=== PATIENT | male | born 1955 | race Caucasian/White ===

== ENCOUNTER 2017-07-15 15:35 | Inpatient (IN) | payer OTHER ==
[~2017-07-15] VITALS: Ht 177.8 cm; Wt 79.2 kg
[2017-07-15 15:39] VITALS: Ht 177.8 cm; Wt 79.2 kg
[2017-07-15] MEDS ORDERED: ASPIRIN 325 MG TAB PO STA (16:01)
[2017-07-15 16:50] LABS: ABNORMAL IP MESSAGE 1; BASOPHILS % 0.4 % (0.0-2.0); EOSINOPHILS # 0.1 10^3/ul (0.0-0.5); EOSINOPHILS % 1.3 % (0.0-7.0); HEMATOCRIT 41.5 % (42.0-52.0); HEMOGLOBIN 14.9 g/dl (14.0-18.0); LYMPHOCYTES # 0.5 10^3/ul (0.8-2.9); LYMPHOCYTES % 9.9 % (15.0-51.0); MEAN CORPUSCULAR HEMOGLOBIN 31.9 pg (29.0-33.0); MEAN CORPUSCULAR HGB CONC 35.9 g/dl (32.0-37.0); MEAN CORPUSCULAR VOLUME 88.9 fl (82.0-101.0); MEAN PLATELET VOLUME 10.1 fl (7.4-10.4); MONOCYTE # 0.4 10^3/ul (0.3-0.9); NEUTROPHIL # 3.7 10^3/ul (1.6-7.5); NEUTROPHILS % 79.2 % (39.0-77.0); PLATELET COUNT 138 10^3/UL (140-415); POSITIVE DIFF @See below; RED BLOOD COUNT 4.67 10^6/ul (4.70-6.10); RED CELL DISTRIBUTION WIDTH 12.9 % (11.5-14.5); WHITE BLOOD COUNT 4.7 10^3/ul (4.8-10.8)
[2017-07-15 17:06] LABS: ALANINE AMINOTRANSFERASE 38 IU/L (13-69); ALBUMIN 4.4 g/dl (3.3-4.9); ALBUMIN/GLOBULIN RATIO 1.41; ALKALINE PHOSPHATASE 63 IU/L (42-121); ANION GAP 15 (8-16); ASPARTATE AMINO TRANSFERASE 23 IU/L (15-46); BILIRUBIN,INDIRECT 0.6 mg/dl (0-1.1); BILIRUBIN,TOTAL 0.6 mg/dl (0.2-1.3); BLOOD UREA NITROGEN 21 mg/dl (7-20); CALCIUM 9.8 mg/dl (8.4-10.2); CARBON DIOXIDE 28 mmol/L (21-31); CHLORIDE 107 mmol/L (97-110); CREATININE 1.22 mg/dl (0.61-1.24); GLUCOSE 99 mg/dl (70-220); POTASSIUM 3.9 mmol/L (3.5-5.1); SODIUM 146 mmol/L (135-144); TOTAL PROTEIN 7.5 g/dl (6.1-8.1)
--- NOTE | 2017-07-15 17:09 | RADRPT ---
PROCEDURE: XR Chest. CLINICAL INDICATION: Chest pain. TECHNIQUE: Single frontal view of the chest was obtained. COMPARISON: None FINDINGS: The cardiomediastinal silhouette is normal in size. No focal consolidation is seen. No pleural effusion is seen. No definite pneumothorax. No acute osseous abnormality. There are multilevel degenerative changes of the imaged spine. IMPRESSION: No radiographic evidence of an acute cardiopulmonary process. RPTAT: [facility] Alonso Baez Physician Date Time Electronically viewed and signed by Alonso Baez Physician on 07/15/2017 17:09 PH/
[2017-07-15 17:32] LABS: TROPONIN-I < 0.012 ng/ml (0.00-0.12)
[2017-07-15] MEDS ORDERED: LISI10TA2 PO (17:33)
--- NOTE | 2017-07-15 18:16 | ERD ---
ER Documentation Chief Complaint Chief Complaint Complains of chest pain and pressure since today HPI 62-year-old male presents to the emergency department with his family complaining of chest discomfort. Patient was in his usual state of health until the last 3 weeks at which time He has been changing his blood pressure medication around with his doctor. Over the last 24-48 hours, he has been having a nonspecific chest discomfort in the left side of his chest that became more severe and pressure-like this morning. It radiated down his left arm and was associated with a sense of shortness of breath and generalized weakness. Patient reports no fevers, chills , hemoptysis. He currently reports the pain is mild to moderate. ROS All systems reviewed and are negative except as per history of present illness. Medications Home Meds Reported Medications Lisinopril* (Lisinopril*) 10 Mg Tablet, 10 MG PO DAILY, #30 TAB 07/15/17 Allergies Allergies: Coded Allergies: No Known Allergy (Unverified , 07/15/17) PMhx/Soc History of Surgery: No Anesthesia Reaction: No Hx Neurological Disorder: No Hx Respiratory Disorders: No Hx Cardiac Disorders: Yes (HTN) Hx Psychiatric Problems: No Hx Miscellaneous Medical Probl: No Hx Alcohol Use: No Hx Substance Use: No Hx Tobacco Use: No Smoking Status: Former smoker FmHx Noncontributory for chief complaint Physical Exam Vitals Vital Signs Date Time Temp Pulse Resp B/P Pulse Ox O2 Delivery O2 Flow Rate FiO2 07/15/17 18:01 50 9 134/87 100 Room Air 07/15/17 15:51 54 14 151/91 100 Room Air 07/15/17 15:39 56 20 159/80 98 Physical Exam GENERAL: The patient is well developed and appropriate for usual state of health in no apparent distress HEENT: Pupils equal, round, and reactive to light. EOMI. There is no scleral icterus. NECK: C-spine is soft and supple, there is no meningismus. There is no cervical lymphadenopathy. LUNGS: Clear to auscultation bilaterally. There are no rales, wheezes or rhonchi. HEART: Regular rate and rhythm, no murmurs, clicks, rubs or gallops. ABDOMEN: Soft, non-tender, non-distended. There are bowel sounds in all four quadrants. No rebound or guarding. EXTREMITIES: There is no peripheral cyanosis or edema. No focal swelling or erythema. NEURO: The patient moves all four extremities with 5/5 strength. Cranial nerves II - XII are intact. Normal gait. Alert and oriented SKIN: There is no apparent rash or petechiae. HEME/LYMPHATIC: There is no evidence of excessive bruising or lymphedema. PSYCHIATRIC: The patient does not appear anxious or depressed. Result Diagram: 07/15/17 1545 07/15/17 1545 Results 24 hrs Laboratory Tests Test 07/15/17 15:45 White Blood Count 4.710^3/ul Red Blood Count 4.6710^6/ul Hemoglobin 14.9g/dl Hematocrit 41.5% Mean Corpuscular Volume 88.9fl Mean Corpuscular Hemoglobin 31.9pg Mean Corpuscular Hemoglobin Concent 35.9g/dl Red Cell Distribution Width 12.9% Platelet Count 56496^3/UL Mean Platelet Volume 10.1fl Neutrophils % 79.2% Lymphocytes % 9.9% Monocytes % 9.0% Eosinophils % 1.3% Basophils % 0.4% Nucleated Red Blood Cells % 0.0/100WBC Neutrophils # 3.710^3/ul Lymphocytes # 0.510^3/ul Monocytes # 0.410^3/ul Eosinophils # 0.110^3/ul Basophils # 0.010^3/ul Nucleated Red Blood Cells # 0.010^3/ul Sodium Level 146mmol/L Potassium Level 3.9mmol/L Chloride Level 107mmol/L Carbon Dioxide Level 28mmol/L Anion Gap 15 Blood Urea Nitrogen 21mg/dl Creatinine 1.22mg/dl Glucose Level 99mg/dl Calcium Level 9.8mg/dl Total Bilirubin 0.6mg/dl Direct Bilirubin 0.00mg/dl Indirect Bilirubin 0.6mg/dl Aspartate Amino Transf (AST/SGOT) 23IU/L Alanine Aminotransferase (ALT/SGPT) 38IU/L Alkaline Phosphatase 63IU/L Troponin I < 0.012ng/ml Total Protein 7.5g/dl Albumin 4.4g/dl Globulin 3.10g/dl Albumin/Globulin Ratio 1.41 Current Medications Medications (Trade) Dose Ordered Sig/Adryan Route PRN Reason Start Time Stop Time Status Last Admin Dose Admin Aspirin (Aspirin) 325 mg ONCE STAT PO 07/15/17 16:01 07/15/17 16:02 DC 11/18/17 16:45 Procedures/MDM Patient was taken to a room, seen and evaluated. Comfort measures were initiated. Diagnostic tests were ordered and reviewed. 3 LEAD RHYTHM STRIP: Normal sinus rhythm without ectopy EK lead EKG reviewed by myself: Normal Sinus Rhythm Normal [place] and intervals No ST elevation, depression, or T wave inversion Impression: Normal EKG Repeat EKG interpreted by myself: Rate/rhythm: Normal sinus rhythm no ectopy [place]/intervals: Normal Ischemia: No ST elevation, ST depression, T wave inversion Impression: Nonischemic EKG RADIOLOGY: reviewed with the radiologist CONSULTATION: hospitalist was notified for admission REEVALUATION: Patient has remained stable in the emergency department. MEDICAL DECISION MAKIN-year-old male presents to the emergency department with chest pain of uncertain etiology. His first EKGs and troponins are reassuring. However, he has hypertension and other cardiac risk factors and will be admitted for ruling out ischemic disease. At this time, he appears to be comfortable pending his bed admission. Departure Diagnosis: Primary Impression: Chest pain Condition: Stable CARMEN VALDOVINOS Jul 15, 2017 18:16
[2017-07-15 19:55] VITALS: TEMP 98.3
[2017-07-15] MEDS ORDERED: BISACODYL (EC) 5 MG TAB PO PRN (20:00)
[2017-07-15] MEDS ORDERED: morphine 2 MG INJ IV PRN (20:00)
[2017-07-15] MEDS ORDERED: ACETAMINOPHEN 325 MG TAB PO PRN (20:00)
[2017-07-15] MEDS ORDERED: NACL 0.9% 3 ML SYG IV SCH (20:00)
[2017-07-15] MEDS ORDERED: NITROGLYCERIN (SL) 0.4 MG TAB SL PRN (20:00)
[2017-07-15] MEDS ORDERED: DOCUSATE SODIUM 100 MG CAP PO PRN (20:00)
[2017-07-15 20:17] VITALS: BP 137/64; PULSE 88; RESP 18
[2017-07-15 20:31] VITALS: PULSE 51
[2017-07-15 22:57] LABS: CREATINE KINASE 61 IU/L (23-200)
[2017-07-15 23:09] LABS: CK-MB 0.93 ng/ml (0.0-2.4); TROPONIN-I < 0.012 ng/ml (0.00-0.12)
[2017-07-15 23:54] VITALS: BP 125/78; PULSE 54; RESP 20
[2017-07-16] VITALS (12 sets, daily range): BP systolic 124–138; BP diastolic 75–86; PULSE 49–78; RESP 16–20
--- NOTE | 2017-07-16 05:54 | HP ---
Date/Time of Note Date/Time of Note DATE: 07/16/17 TIME: 05:51 Assessment/Plan VTE Prophylaxis VTE Prophylaxis Intervention: SCD's Lines/Catheters [facility] [place] Assessment/Plan Chief Complaint/Hosp Course This is a 62-year-old male being admitted to the telemetry floor for #1 chest pain: Rule out ACS: At the current time will trend cardiac troponins 3 , the first set was negative. Will check a echocardiogram. Aspirin/nitro/ morphine. Will consult cardiology. Will check TSH, lipid panel, A1c #2 sinus bradycardia: Likely could be patient's baseline, however in the setting of chest pain we will continue to monitor on telemetry. Consult cardiology. #3 hypertension: Continue lisinopril, continue to monitor patient's blood pressure #4 DVT GI prophylaxis: SCDs, no GI prophylaxis indicated Further treatment strategy will be implemented as per the clinical course Problems: HPI/ROS Admit Date/Time Admit Date/Time Jul 15, 2017 at 18:42 Hx of Present Illness Chief complaint: Chest pressure This is a 62-year-old male presents to the emergency department with his family complaining of chest pressure. Over the last 24-48 hours, he has been having a nonspecific chest discomfort in the left side of his chest that became more severe and pressure-like this morning. It radiated down his left arm and was associated with a sense of shortness of breath and generalized weakness. Patient reports no fevers, chills, hemoptysis. He currently reports the pain is mild to moderate. No one has ever mentioned to him before whether he has a low heart rate are not. Upon my examination at the bedside patient states that his symptoms have resolved. allergies: NKDA Medications: Lisinopril 10 mg once daily ROS Const: As per HPI Eyes : No pain discharge or redness or change in visual acuity ENT: No pain, sore throat, congestion, congestion, dysphagia or discharge Respiratory: As per HPI Cardiovascular: As per HPI GI : no change in appetite, abdominal pain, nausea, vomiting, diarrhea, constipation, or change in the color his stool Genitourinary: No dysuria, hematuria, flank pain , discharge or CVA tenderness Musculoskeletal: No joint pain, back pain, neck pain, restricted range of motion in neck or joints Skin: No rash, bruising or hives Neuro: No headache, dizziness, syncope, seizure, focal weakness Endocrine: No polyuria, polydipsia, temperature intolerance Psych: No hallucination, depression, anxiety or suicidal ideation PMH/Family/Social Past Medical History Hypertension Past Surgical History Left toe surgery Family History Significant Family History: diabetes, hypertension Social History Smoking Status: Former smoker (1 pack per day 35 years, quit recently) Exam/Review of Systems Vital Signs Vitals Vital Signs Date Time Temp Pulse Resp B/P Pulse Ox O2 Delivery O2 Flow Rate FiO2 07/16/17 04:10 49 07/15/17 23:54 97.9 20 125/78 96 Room Air Exam Exam General: Patient is well-developed well-nourished The patient is alert oriented -3 lying comfortably in bed. HEENT: Atraumatic, normocephalic. The pupils are equal, round and reactive. Extraocular motor are intact Neck: Supple with full range of motion. No rigidity or meningismus Chest: Nontender Lungs: Clear to auscultation bilaterally no crackles rales or wheezing Heart: Normal S1-S2, Regular rhythm and rate. No overt murmurs appreciated Abdomen: Soft , nontender, nondistended , bowel sounds are present. No guarding no rebound tenderness , No masses or organomegaly. No costovertebral temporal angle mass Extremities: Normal to inspection, no edema no cyanosis Neurologic: Normal mental status, speech normal, cranial nerves II through XII are intact, motor and sensory are intact, no focal weakness Additional Comments EKG Rate/rhythm: Normal sinus rhythm no ectopy [place]/intervals: Normal Ischemia: No ST elevation, ST depression, T wave inversion Impression: Nonischemic EKG As per ED physician documentation PROCEDURE: XR Chest. CLINICAL INDICATION: Chest pain. TECHNIQUE: Single frontal view of the chest was obtained. COMPARISON: None FINDINGS: The cardiomediastinal silhouette is normal in size. No focal consolidation is seen. No pleural effusion is seen. No definite pneumothorax. No acute osseous abnormality. There are multilevel degenerative changes of the imaged spine. IMPRESSION: No radiographic evidence of an acute cardiopulmonary process. RPTAT: [facility] Physician Nir Date Time Electronically viewed and signed by Philipy Ho, Physician on 07/15/2017 17:09 PH/ CC: CARMEN VALDOVINOS Telemetry reading: Sinus bradycardia 48 bpm Labs Result Diagram: 07/15/17 1545 07/15/17 1545 Medications Medications Current Medications Aspirin (Aspirin) 81 mg DAILY PO ; Start 07/16/17 at 09:00 Nitroglycerin (Nitroglycerin (Sl Tab) 0.4 Mg) 1 tab Q5M PRN SL CHEST PAIN; Start 07/15/17 at 20:00 Acetaminophen (Tylenol Tab) 650 mg Q6H PRN PO PAIN LEVEL 1-3 OR FEVER; Start 07/15/17 at 20:00 Morphine Sulfate (morphine) 2 mg Q4H PRN IV PAIN LEVEL 7-10; Start 07/15/17 at 20:00 Docusate Sodium (Colace) 100 mg Q12H PRN PO CONSTIPATION; Start 07/15/17 at 20 :00 Bisacodyl (Dulcolax) 5 mg DAILY PRN PO CONSTIPATION; Start 07/15/17 at 20:00 Lisinopril (Zestril) 10 mg DAILY PO ; Start 07/16/17 at 09:00 DARIN HEALY Jul 16, 2017 05:54
[2017-07-16 08:13] LABS: ABNORMAL IP MESSAGE 1; BASOPHILS % 0.5 % (0.0-2.0); EOSINOPHILS % 0.8 % (0.0-7.0); HEMATOCRIT 41.9 % (42.0-52.0); HEMOGLOBIN 14.8 g/dl (14.0-18.0); LYMPHOCYTES # 0.5 10^3/ul (0.8-2.9); LYMPHOCYTES % 12.4 % (15.0-51.0); MEAN CORPUSCULAR HEMOGLOBIN 31.8 pg (29.0-33.0); MEAN CORPUSCULAR HGB CONC 35.3 g/dl (32.0-37.0); MEAN CORPUSCULAR VOLUME 90.1 fl (82.0-101.0); MEAN PLATELET VOLUME 10.3 fl (7.4-10.4); MONOCYTE # 0.3 10^3/ul (0.3-0.9); MONOCYTES % 7.6 % (0.0-11.0); NEUTROPHIL # 2.9 10^3/ul (1.6-7.5); NEUTROPHILS % 78.4 % (39.0-77.0); PLATELET COUNT 113 10^3/UL (140-415); POSITIVE DIFF @See below; RED BLOOD COUNT 4.65 10^6/ul (4.70-6.10); RED CELL DISTRIBUTION WIDTH 13.2 % (11.5-14.5); WHITE BLOOD COUNT 3.7 10^3/ul (4.8-10.8)
[2017-07-16] MEDS: ASPIRIN 81 MG TAB PO SCH (08:27)
[2017-07-16] MEDS: LISINOPRIL 10 MG TAB PO SCH (08:28)
[2017-07-16 08:37] LABS: CREATINE KINASE 49 IU/L (23-200)
[2017-07-16 08:38] LABS: ALBUMIN 4.3 g/dl (3.3-4.9); ALBUMIN/GLOBULIN RATIO 1.59; BILIRUBIN,INDIRECT 1.2 mg/dl (0-1.1); BILIRUBIN,TOTAL 1.2 mg/dl (0.2-1.3); CHOL/HDL RATIO 4.9 RATIO; CREATININE 1.03 mg/dl (0.61-1.24); MAGNESIUM 1.9 mg/dl (1.7-2.5); POTASSIUM 4.8 mmol/L (3.5-5.1)
[2017-07-16 08:49] LABS: TROPONIN-I < 0.012 ng/ml (0.00-0.12)
[2017-07-16 09:06] LABS: THYROID STIMULATING HORMONE 1.33 MIU/L (0.465-4.680)
--- NOTE | 2017-07-16 10:55 | RADRPT ---
Echocardiogram Report Patient Name: CHIKIS MILLER Gender: Male Date: 1955 Study Date: 16-Jul-2017 Power Tong Operator: WOLF Location: I Ref. Physician: DARIN HEALY Quality: Good Procedures: Transthoracic echocardiogram with complete 2D, M-Mode, and doppler examination. Indications: Chest Pain. 2D/M Mode Doppler Measurement Value Normal Ranges Measurement Value Normal Ranges AoR Diam MM 4.1 cm NICCI Vmax 1.9 cm2 LA/Ao MM 0.7 NICCI VTI 1.9 cm2 LA Dimen MM 2.8 cm AV Mean Jose Guadalupe 1.2 m/sec LVIDd 2D 5.1 3.5 - 5.6 cm AV Mean PG 6.2 mmHg LVIDs 2D 3.5 2.1 - 4.1 cm AV Peak Jose Guadalupe 1.6 m/sec LVPWd 2D 1.0 0.6 - 1.1 cm AV Peak PG 9.7 mmHg IVSd 2D 1.0 0.6 - 1.1 cm AV VTI 33.2 cm AoR Diam 2D 4.1 2.0 - 3.7 cm LVOT Peak Jose Guadalupe 0.9 m/sec EDV 2D 122.2 cm3 LVOT Peak PG 3.0 mmHg ESV 2D 41.3 cm3 MV E Peak Jose Guadalupe 0.8 m/sec LVOT Diam 2.1 cm MV A Peak Jose Guadalupe 0.6 m/sec MV E/A 1.3 MV Decel Time 265 msec MV Decel [place] 3 MV E/A 1.3 TR Peak Jose Guadalupe 2.3 m/sec TR Peak PG 21.5 mmHg Findings Left Ventricle: Normal left ventricular systolic function. Normal left ventricular cavity size. Normal left ventricular wall thickness. Ejection fraction is visually estimated at 60 %. Tissue Doppler/Mitral Doppler indices are within normal limits. Right Ventricle: Normal right ventricular size. Normal right ventricular systolic function. Left Atrium: The left atrium is normal in size. Right Atrium: The right atrium is normal in size. Mitral Valve: Normal appearance and function of the mitral valve with trace physiologic regurgitation. Aortic Valve: Normal appearance of the aortic valve. No hemodynamically significant aortic stenosis by doppler. Trace aortic valve regurgitation. Tricuspid Valve: Estimated peak PA systolic pressure 25 mmHg. There is trace tricuspid regurgitation. Pericardium: Normal pericardium with no significant pericardial effusion. Aorta: Sinus of valsalva is dilated. Sinus of valsalva4.10 cm. Ascending aorta is dilated. Aortic arch 4.60 cm. IVC: Normal size and normal respiratory collapse consistent with normal right atrial pressure. Conclusions 1.Normal left ventricular systolic function. Normal left ventricular cavity size. Normal left ventricular wall thickness. Ejection fraction is visually estimated at 60 %. Tissue Doppler/Mitral Doppler indices are within normal limits. 2.Sinus of valsalva is dilated at 4.10 cm. Ascending aorta is dilated at 4.60 cm. 3.No significant valvular stenosis or regurgitation seen. 4.Estimated peak PA systolic pressure 25 mmHg based on RA pressure of 3 mmHg. Electronically Signed By: Thiago Wooten 16-Jul-2017 10:53:57 -0800 Patient Name: CHIKIS MILLER Study Date: 16-Jul-2017 [id number]
--- NOTE | 2017-07-16 11:04 | CONS ---
Date/Time of Note Date/Time of Note DATE: 07/16/17 TIME: 10:54 Assessment/Plan Assessment/Plan Chief Complaint/Hosp Course Chest pain: Trops negative and EKG unremarkable. Echo with preserved EF and no WMA. His symptoms are somewhat worrisome as they may represent unstable angina which has progressed over the past week. I think an anatomic evaluation is appropriate and since the history isnt classic for angina and the pt has risk factors, favor cardiac CT over Lexiscan. He also has an aortic aneurysm by echo (4.6cm) and though very low suspicion for dissection, the CT would also better assess the aneurysm. Ascending aortic aneurysm: 4.6cm by echo. Unclear chronicity. Will evaluate by CT and needs serial follow-up HTN: controlled -Coronary CTA hopefully can be done today -continue ASA -lisinopril -no BB as baseline bradycardia -will ask Dr. 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 The pt notes that over the past few days, he has been having episodes of chest pressure unrelated to activity. He had very brief episodes earlier this week which resolved but yesterday he had an epsiode lasting 3 hours which concerned him. No further chest pain since coming to the ED. He had chest "twinges" recently and was seen by Dr. Del Cid 3 weeks ago. He did not have the chest pressure that brought him in this time. His main reason for visiting a cleat maker was that he had some changes made to his medications. He was on lisinopril 30mg but he lost 60lbs and quit smoking and so his dose had been coming down and his PMD wanted cardiology input. No prior heart disease or MD. No SOB, orthopnea, PND, edema. per HPI Past Medical History per hPI Social History Smoking Status: Former smoker (1 pack per day 35 years, quit recently) Exam/Review of Systems Vital Signs Vitals Vital Signs Date Time Temp Pulse Resp B/P Pulse Ox O2 Delivery O2 Flow Rate FiO2 07/16/17 08:00 54 07/16/17 05:00 97.9 20 133/78 97 Room Air Intake and Output 07/15/17 07/15/17 07/16/17 15:00 23:00 07:00 Intake Total 80 ml Balance 80 ml Exam Constitutional: alert, oriented Psych: nl mood/affect, no complaints Head: atraumatic, normocephalic Neck: supple, No jvd Respiratory: clear to auscultation, No crackles/rales Cardiovascular: regular rate and rhythm, No edema, No systolic murmur Gastrointestinal: non-tender, soft Extremities: normal pulses Neurological: nl mental status, nl speech Results sinus bradycardia, no ST changes Result Diagram: 07/16/1771707/16/17717 Results 24 hrs Laboratory Tests Test 07/15/17 15:45 07/15/17 22:08 07/16/17 07:18 White Blood Count 4.7 L 3.7 #L Red Blood Count 4.67 L 4.65 L Hemoglobin 14.9 14.8 Hematocrit 41.5 L 41.9 L Mean Corpuscular Volume 88.9 90.1 Mean Corpuscular Hemoglobin 31.9 31.8 Mean Corpuscular Hemoglobin Concent 35.9 35.3 Red Cell Distribution Width 12.9 13.2 Platelet Count 138 L 113 L Mean Platelet Volume 10.1 10.3 Neutrophils % 79.2 H 78.4 H Lymphocytes % 9.9 L 12.4 L Monocytes % 9.0 7.6 Eosinophils % 1.3 0.8 Basophils % 0.4 0.5 Nucleated Red Blood Cells % 0.0 0.0 Neutrophils # 3.7 2.9 Lymphocytes # 0.5 L 0.5 L Monocytes # 0.4 0.3 Eosinophils # 0.1 0.0 Basophils # 0.0 0.0 Nucleated Red Blood Cells # 0.0 0.0 Sodium Level 146 H 146 H Potassium Level 3.9 4.8 Chloride Level 107 107 Carbon Dioxide Level 28 31 Anion Gap 15 13 Blood Urea Nitrogen 21 H 22 H Creatinine 1.22 1.03 Glucose Level 99 86 Calcium Level 9.8 10.0 Total Bilirubin 0.6 1.2 Direct Bilirubin 0.00 0.00 Indirect Bilirubin 0.6 1.2 H Aspartate Amino Transf (AST/SGOT) 23 21 Alanine Aminotransferase (ALT/SGPT) 38 42 Alkaline Phosphatase 63 55 Troponin I < 0.012 < 0.012 < 0.012 Total Protein 7.5 7.0 Albumin 4.4 4.3 Globulin 3.10 2.70 Albumin/Globulin Ratio 1.41 1.59 Creatine Kinase 61 49 Creatine Kinase Index 1.5 1.4 Creatinine Kinase MB (Mass) 0.93 0.70 Hemoglobin A1c 4.7 Magnesium Level 1.9 Triglycerides Level 64 Cholesterol Level 148 LDL Cholesterol, Calculated 105 HDL Cholesterol 30 Cholesterol/HDL Ratio 4.9 Thyroid Stimulating Hormone (TSH) 1.330 Medications Medications Current Medications Aspirin (Aspirin) 81 mg DAILY PO Last administered on 07/16/17 08:27; Admin Dose 81 MG; Start 07/16/17 at 09:00 Nitroglycerin (Nitroglycerin (Sl Tab) 0.4 Mg) 1 tab Q5M PRN SL CHEST PAIN; Start 07/15/17 at 20:00 Acetaminophen (Tylenol Tab) 650 mg Q6H PRN PO PAIN LEVEL 1-3 OR FEVER; Start 07/15/17 at 20:00 Morphine Sulfate (morphine) 2 mg Q4H PRN IV PAIN LEVEL 7-10; Start 07/15/17 at 20:00 Docusate Sodium (Colace) 100 mg Q12H PRN PO CONSTIPATION; Start 07/15/17 at 20 :00 Bisacodyl (Dulcolax) 5 mg DAILY PRN PO CONSTIPATION; Start 07/15/17 at 20:00 Lisinopril (Zestril) 10 mg DAILY PO Last administered on 07/16/17 08:28; Admin Dose 10 MG; Start 07/16/17 at 09:00 RIYA TSAI Jul 16, 2017 11:04
[2017-07-17] VITALS (11 sets, daily range): BP systolic 104–135; BP diastolic 64–85; PULSE 54–76; RESP 16–20
[2017-07-17 08:33] LABS: ABNORMAL IP MESSAGE 1; BASOPHILS % 0.5 % (0.0-2.0); EOSINOPHILS % 0.7 % (0.0-7.0); HEMATOCRIT 42.4 % (42.0-52.0); HEMOGLOBIN 15.1 g/dl (14.0-18.0); LYMPHOCYTES # 0.4 10^3/ul (0.8-2.9); LYMPHOCYTES % 9.9 % (15.0-51.0); MEAN CORPUSCULAR HEMOGLOBIN 31.9 pg (29.0-33.0); MEAN CORPUSCULAR HGB CONC 35.6 g/dl (32.0-37.0); MEAN CORPUSCULAR VOLUME 89.5 fl (82.0-101.0); MEAN PLATELET VOLUME 10.4 fl (7.4-10.4); MONOCYTE # 0.4 10^3/ul (0.3-0.9); MONOCYTES % 8.6 % (0.0-11.0); NEUTROPHIL # 3.2 10^3/ul (1.6-7.5); NEUTROPHILS % 80.1 % (39.0-77.0); PLATELET COUNT 131 10^3/UL (140-415); POSITIVE DIFF @See below; RED BLOOD COUNT 4.74 10^6/ul (4.70-6.10); RED CELL DISTRIBUTION WIDTH 13.2 % (11.5-14.5); WHITE BLOOD COUNT 4.1 10^3/ul (4.8-10.8)
[2017-07-17] MEDS: ASPIRIN 81 MG TAB PO SCH (08:45)
[2017-07-17] MEDS: LISINOPRIL 10 MG TAB PO SCH (08:46)
[2017-07-17 09:11] LABS: MAGNESIUM 2.1 mg/dl (1.7-2.5); PHOSPHORUS 3.2 mg/dl (2.5-4.9)
[2017-07-17 09:14] LABS: CREATININE 0.95 mg/dl (0.61-1.24); POTASSIUM 4.5 mmol/L (3.5-5.1)
[2017-07-17 09:23] LABS: TROPONIN-I < 0.012 ng/ml (0.00-0.12)
[2017-07-17] MEDS ORDERED: SOD CHLORIDE 0.9% 100 ML ONE (10:39)
[2017-07-17] MEDS ORDERED: IOHEXOL 100 ML ONE (10:39)
[2017-07-17] MEDS ORDERED: IOHEXOL 350MG/ML 50 ML BTL ONE (10:39)
[2017-07-17] MEDS ORDERED: NIT4 SL (10:40)
[2017-07-17] MEDS ORDERED: ASPI81TA3 PO (10:40)
[2017-07-17] MEDS ORDERED: LISI10TA2 PO (10:40)
[2017-07-17] MEDS ORDERED: NITROGLYCERIN AEROSOL (4.9 GM) ONE (11:06)
--- NOTE | 2017-07-17 13:50 | CONS ---
Date/Time of Note Date/Time of Note DATE: 07/17/17 TIME: 13:45 Assessment/Plan Assessment/Plan Chief Complaint/Hosp Course IMP: 1.Chest pain-negative trop x 3, atypical symptomatology-resolved, NL EF by echo 2.HTN 3.Dilated ascending aortic route on Echo 4. Former tob 5.Bradycardia 6. Dyslipidemia-LDL 105, HDL 30 7. Bradycardia to 50's with stable BP-NL TSH Recc; -Tele -serial ecg;'s -Continue zestril with well controlled BP -Hold on BB given intermittent jan to 50's -Continue asa Problems: Consultation Date/Type/Reason Admit Date/Time Jul 15, 2017 at 18:42 Initial Consult Date 07/16/17 Type of Consultation: Cardiology Reason for Consultation chest pain Referring Provider: DARIN HEALY Exam/Review of Systems Vital Signs Vitals Vital Signs Date Time Temp Pulse Resp B/P Pulse Ox O2 Delivery O2 Flow Rate FiO2 07/17/17 12:00 76 07/17/17 11:58 97.9 18 117/72 96 07/16/17 15:50 Room Air Intake and Output 07/16/17 07/16/17 07/17/17 15:00 23:00 07:00 Intake Total 1200 ml 360 ml Balance 1200 ml 360 ml Exam Review of Systems: CONSTITUTIONAL: No fevers, chills. PULMONARY: No sob CARDIOVASCULAR: No chest pain/palpitations GASTROINTESTINAL: No nausea/vomiting. GENITOURINARY: No hematuria/dysuria. MUSCULOSKELETAL: No myagias/arthalgias. PSYCHIATRIC: The patient denies depression. NEUROLOGIC: No weakness Constitutional: alert, oriented Psych: no complaints Head: normocephalic ENMT: mucosa pink and moist Neck: jvd (9 cm WATER), supple Respiratory: clear to auscultation Cardiovascular: regular rate and rhythm Gastrointestinal: non-tender, soft Musculoskeletal: muscle tone (NORMAL) Extremities: edema (NONE) Neurological: other (nO FOCAL DEFICITS) Results Result Diagram: 07/17/17 0733 07/17/17 0733 Results 24 hrs Laboratory Tests Test 07/17/17 07:33 White Blood Count 4.1 L Red Blood Count 4.74 Hemoglobin 15.1 Hematocrit 42.4 Mean Corpuscular Volume 89.5 Mean Corpuscular Hemoglobin 31.9 Mean Corpuscular Hemoglobin Concent 35.6 Red Cell Distribution Width 13.2 Platelet Count 131 L Mean Platelet Volume 10.4 Neutrophils % 80.1 H Lymphocytes % 9.9 L Monocytes % 8.6 Eosinophils % 0.7 Basophils % 0.5 Nucleated Red Blood Cells % 0.0 Neutrophils # 3.2 Lymphocytes # 0.4 L Monocytes # 0.4 Eosinophils # 0.0 Basophils # 0.0 Nucleated Red Blood Cells # 0.0 Sodium Level 149 H Potassium Level 4.5 Chloride Level 109 Carbon Dioxide Level 30 Anion Gap 15 Blood Urea Nitrogen 22 H Creatinine 0.95 Glucose Level 95 Calcium Level 10.0 Phosphorus Level 3.2 Magnesium Level 2.1 Troponin I < 0.012 Medications Medications Current Medications Aspirin (Aspirin) 81 mg DAILY PO Last administered on 07/17/17 08:45; Admin Dose 81 MG; Start 07/16/17 at 09:00 Nitroglycerin (Nitroglycerin (Sl Tab) 0.4 Mg) 1 tab Q5M PRN SL CHEST PAIN; Start 07/15/17 at 20:00 Acetaminophen (Tylenol Tab) 650 mg Q6H PRN PO PAIN LEVEL 1-3 OR FEVER; Start 07/15/17 at 20:00 Morphine Sulfate (morphine) 2 mg Q4H PRN IV PAIN LEVEL 7-10; Start 07/15/17 at 20:00 Docusate Sodium (Colace) 100 mg Q12H PRN PO CONSTIPATION; Start 07/15/17 at 20 :00 Bisacodyl (Dulcolax) 5 mg DAILY PRN PO CONSTIPATION; Start 07/15/17 at 20:00 Lisinopril (Zestril) 10 mg DAILY PO Last administered on 07/17/17 08:46; Admin Dose 10 MG; Start 07/16/17 at 09:00 FCO ALVARADO Jul 17, 2017 13:50
--- NOTE | 2017-07-17 17:05 | RADRPT ---
PROCEDURE: CTA of the heart and coronary arteries. CLINICAL INDICATION: Chest pain COMPARISON: Chest radiograph 07/15/2017 TECHNIQUE: CTA of the coronary arteries with multiphasic ECG-gated volumetric acquisition from the a scending aorta to the diaphragm performed with intravenous contrast on a high-resolution multi detec tor scanner with multiphasic reconstructions. Multiplanar reconstructions, three-dimensional reconst ructions, as well as maximal intensity projection images are produced and reviewed. One or more of t he following dose reduction techniques were used: Automated exposure control; Adjustment of the mA a nd/or kV according to patient size; Use of iterative reconstruction technique; ECG dose modulation. CTDI = 8, 36, 83 mGy. DLP = 1701 mGy-cm. DICOM images are available. Stenosis classification of vessels greater than 1.5 mm in diameter: None 0%, Minimal 1-24%, Mild 25- 49%, Moderate 50-69%, Severe 70-99%, Occluded 100% CONTRAST: 110 mL of Omnipaque 350 intravenously without adverse event. FINDINGS: Overall exam quality and angiographic enhancement: Excellent. Origins and course of the coronary arteries: Normal. Coronary artery system dominance pattern: Right. Total calcium score: 1258 Not fully diagnostic segments due to artifacts: None. RCA: Multifocal calcified and noncalcified plaques in the proximal and mid segments of the vessel pr oduce 30 - 50% stenosis. Small calcified and noncalcified plaques in the distal segment of the vesse l produce 0 - 25% stenosis. PLB: Minimal irregularities. PDA: 30 - 40% stenosis of the proximal segment of the vessel. LM: Patent with no evidence of plaque. RI: Patent with no evidence of plaque. LAD: Multiple predominately calcified plaques producing 50 - 60% stenosis are present at the origin of the of the vessel and up to the level of the first diagonal branch. Diffuse irregularities of the midsegment of the vessel appear to produce less than 25% stenosis although there are no clearly nor mal reference segments available for comparison. Distal segment of the vessel is widely patent. Diags: D1: Minimal irregularities. LCX: 40 - 50% stenosis of the origin and proximal segment of the vessel due to predominantly noncalc ified plaque. Smaller predominately calcified plaques within the mid - distal segment of the vessel produce less than 25% stenosis. OMs: The small caliber vessels appear widely patent. Pericardium: Normal. Pericardial effusion: None. Heart size: Normal. Aortic valve: Trileaflet morphology. Systolic excursion is not well visualized on the phases obtaine d. Normal diastolic coaptation. No evidence of thickening or calcification. Mitral valve: Normal morphology. No evidence of prolapse on systolic images. No evidence of thickeni ng or calcification. Myocardial attenuation: Normal. No abnormal areas of thickening or thinning. Intracardiac enhancement: No left-sided filling defects to suggest the presence of mass or thrombus . Left atrial appendage is well opacified. Extracardiac findings: Visualized thoracic aorta: Aneurysmal dilatation of the mid ascending thoracic aorta measuring 4.6 c m. Dilatation of the aortic root with maximal root dimension of 4.8 cm; asymmetric dilatation of the noncoronary cusp. Pulmonary arteries: Normal caliber. No evidence of central filling defect. Pulmonary veins: Conventional pulmonary venous return. Lungs: No acute appearing air space infiltrates. No suspicious pulmonary nodules. Visualized mediastinum: No mass or fluid collection. No lymphadenopathy. Visualized osseous structures: Moderate degenerative changes of the thoracic spine. Visualized upper abdomen: Normal. Other findings: None. IMPRESSION: Total calcium score: 1258 Not fully diagnostic segments due to artifacts: None. RCA: Multifocal calcified and noncalcified plaques in the proximal and mid segments of the vessel pr oduce 30 - 50% stenosis. Small calcified and noncalcified plaques in the distal segment of the vesse l produce 0 - 25% stenosis. PLB: Minimal irregularities. PDA: 30 - 40% stenosis of the proximal segment of the vessel. LM: Patent with no evidence of plaque. RI: Patent with no evidence of plaque. LAD: Multiple predominately calcified plaques producing 50 - 60% stenosis are present at the origin of the of the vessel and up to the level of the first diagonal branch. Diffuse irregularities of the midsegment of the vessel appear to produce less than 25% stenosis although there are no clearly nor mal reference segments available for comparison. Distal segment of the vessel is widely patent. Diags: D1: Minimal irregularities. LCX: 40 - 50% stenosis of the origin and proximal segment of the vessel due to predominantly noncalc ified plaque. Smaller predominately calcified plaques within the mid - distal segment of the vessel produce less than 25% stenosis. OMs: The small caliber vessels appear widely patent. Dilatation of the aortic root with maximal root dimension of 4.8 cm; asymmetric dilatation of the no ncoronary cusp. Aneurysmal dilatation of the mid ascending thoracic aorta measuring 4.6 cm. RPTAT: AADD .Onofre Stoddard MD, Date Time Electronically viewed and signed by .Onofre Stoddard MD, on 07/17/2017 17:05 .B/
--- NOTE | 2017-07-17 17:20 | PN ---
Date/Time of Note Date/Time of Note DATE: 07/17/17 TIME: 17:20 Assessment/Plan VTE Prophylaxis VTE Prophylaxis Intervention: SCD's Lines/Catheters IV [facility]from [facility] Saline Lock Assessment/Plan Chief Complaint/Hosp Course Assessment and plan 1. Chest pain. Rule out ACS. Serial troponins were negative 3. CTA of the chest was done that showed total calcium score of 1258. There was seen some noncalcified plaques in the proximal and mid segments of the vessels to produce 30-50% stenosis in the RCA. The LAD there was seen multiple calcified plaques producing 50-60% stenosis. LCx showed 40-50% stenosis of the origin and proximal segment of the vessel due to predominantly noncalcified plaque. Will follow up with adult basic education teacher for recommendations. 2. Sinus bradycardia. Likely patient's baseline. Patient asymptomatic at present. Monitor on telemetry. 3. Hypertension. Continue antihypertensives and adjust needed. Disposition plan: We will follow-up with adult basic education teacher concerning her iliac CT. Discharge when medically stable and cleared by reporting consultant Discussed plan of care with Dr. Laguerre Problems: Subjective 24 Hr Interval Summary Free Text/Dictation Denies any chest pain. Appears comfortable at present. Exam/Review of Systems Vital Signs Vitals Vital Signs Date Time Temp Pulse Resp B/P Pulse Ox O2 Delivery O2 Flow Rate FiO2 07/17/17 16:00 72 07/17/17 15:45 98.0 18 105/68 95 07/16/17 15:50 Room Air Intake and Output 07/16/17 07/16/17 07/17/17 15:00 23:00 07:00 Intake Total 1200 ml 360 ml Balance 1200 ml 360 ml Exam Constitutional: alert, oriented Psych: nl mood/affect Head: normocephalic Eyes: nl conjunctiva Neck: non-tender, supple Respiratory: clear to auscultation, normal air movement Cardiovascular: regular rate and rhythm Gastrointestinal: non-tender, soft Musculoskeletal: nl extremities to inspection Neurological: CR[employer]GER II-XII intact, nl mental status, nl speech Skin: nl turgor Results Result Diagram: 07/17/17 0733 07/17/17 0733 Results 24 hrs Laboratory Tests Test 07/17/17 07:33 White Blood Count 4.1 L Red Blood Count 4.74 Hemoglobin 15.1 Hematocrit 42.4 Mean Corpuscular Volume 89.5 Mean Corpuscular Hemoglobin 31.9 Mean Corpuscular Hemoglobin Concent 35.6 Red Cell Distribution Width 13.2 Platelet Count 131 L Mean Platelet Volume 10.4 Neutrophils % 80.1 H Lymphocytes % 9.9 L Monocytes % 8.6 Eosinophils % 0.7 Basophils % 0.5 Nucleated Red Blood Cells % 0.0 Neutrophils # 3.2 Lymphocytes # 0.4 L Monocytes # 0.4 Eosinophils # 0.0 Basophils # 0.0 Nucleated Red Blood Cells # 0.0 Sodium Level 149 H Potassium Level 4.5 Chloride Level 109 Carbon Dioxide Level 30 Anion Gap 15 Blood Urea Nitrogen 22 H Creatinine 0.95 Glucose Level 95 Calcium Level 10.0 Phosphorus Level 3.2 Magnesium Level 2.1 Troponin I < 0.012 Medications Medications Current Medications Aspirin (Aspirin) 81 mg DAILY PO Last administered on 07/17/17 08:45; Admin Dose 81 MG; Start 07/16/17 at 09:00 Nitroglycerin (Nitroglycerin (Sl Tab) 0.4 Mg) 1 tab Q5M PRN SL CHEST PAIN; Start 07/15/17 at 20:00 Acetaminophen (Tylenol Tab) 650 mg Q6H PRN PO PAIN LEVEL 1-3 OR FEVER; Start 07/15/17 at 20:00 Morphine Sulfate (morphine) 2 mg Q4H PRN IV PAIN LEVEL 7-10; Start 07/15/17 at 20:00 Docusate Sodium (Colace) 100 mg Q12H PRN PO CONSTIPATION; Start 07/15/17 at 20 :00 Bisacodyl (Dulcolax) 5 mg DAILY PRN PO CONSTIPATION; Start 07/15/17 at 20:00 Lisinopril (Zestril) 10 mg DAILY PO Last administered on 07/17/17 08:46; Admin Dose 10 MG; Start 07/16/17 at 09:00 NESS BAR Jul 17, 2017 17:20
[2017-07-18] VITALS: PULSE 51
[2017-07-18 01:55] VITALS: BP 104/61; RESP 16
[2017-07-18 04:00] VITALS: BP 127/73; PULSE 50; RESP 16
[2017-07-18 08:12] VITALS: BP 132/80; PULSE 66; RESP 17
--- NOTE | 2017-07-18 08:54 | CONS ---
Date/Time of Note Date/Time of Note DATE: 07/18/17 TIME: 08:52 Assessment/Plan Assessment/Plan Additional Assessment/Plan 1.Chest pain-negative trop x 3, atypical symptomatology-resolved, NL EF by echo - S/p CTA - extensive diffuse disease - med rx advised. 2.HTN - con't med rx. 3.Dilated ascending aortic route on Echo - 4.[address] chest. 4. Former tob - d/c advised. 5.Bradycardia - now rate controled. 6. Dyslipidemia-LDL 105, HDL 30 7. Bradycardia to 50's with stable BP-NL TSH - no indication for pacer. Consultation Date/Type/Reason Admit Date/Time Jul 15, 2017 at 18:42 Initial Consult Date 07/16/17 Type of Consultation: Cardiology Referring Provider: DARIN HEALY 24 HR Interval Summary Free Text/Dictation Pt stable now - NO CP - advise outpt f/up for CAD and aortic disease - med Rx optimization. ROS: No fever, no chills, no nausea, no vomiting, no diarrhea/constipation No recent weight changes No chest pain, no PND, no orthopnea No dizziness, blurred vision No thirst, no heat or cold intolerance Exam/Review of Systems Vital Signs Vitals Vital Signs Date Time Temp Pulse Resp B/P Pulse Ox O2 Delivery O2 Flow Rate FiO2 07/18/17 08:12 98.2 63 17 132/80 96 07/16/17 15:50 Room Air Intake and Output 07/17/17 07/17/17 07/18/17 15:00 23:00 07:00 Intake Total 300 ml Balance 300 ml Exam General: WN/WD/NAD, AOx c3 HEENT: Unicetric/atraumatic/EOMI (follows commands) NECK: JVD elevated, no thyromegaly Lymph: no lymphadenopathy HEART: regular with no S3, II/ systolic murmur at apex LUNGS: Coarse sounds ABD: soft, NT, ND, +BS : Intact Neuro: non focal SKIN: chronic changes EXT: trace edema Results Result Diagram: 07/17/1733 07/17/17 0733 Medications Medications Current Medications Aspirin (Aspirin) 81 mg DAILY PO Last administered on 07/17/17t 08:45; Admin Dose 81 MG; Start 07/16/17 at 09:00 Nitroglycerin (Nitroglycerin (Sl Tab) 0.4 Mg) 1 tab Q5M PRN SL CHEST PAIN; Start 07/15/17 at 20:00 Acetaminophen (Tylenol Tab) 650 mg Q6H PRN PO PAIN LEVEL 1-3 OR FEVER; Start 07/15/17 at 20:00 Morphine Sulfate (morphine) 2 mg Q4H PRN IV PAIN LEVEL 7-10; Start 07/15/17 at 20:00 Docusate Sodium (Colace) 100 mg Q12H PRN PO CONSTIPATION; Start 07/15/17 at 20 :00 Bisacodyl (Dulcolax) 5 mg DAILY PRN PO CONSTIPATION; Start 07/15/17 at 20:00 Lisinopril (Zestril) 10 mg DAILY PO Last administered on 07/17/17t 08:46; Admin Dose 10 MG; Start 07/16/17 at 09:00 REGAN HANEY MD Jul 18, 2017 08:54
[2017-07-18] MEDS: LISINOPRIL 10 MG TAB PO SCH (09:04)
[2017-07-18] MEDS: ASPIRIN 81 MG TAB PO SCH (09:04)
--- NOTE | 2017-07-18 09:45 | PDOCDIS ---
Discharge Instructions DIAGNOSIS Discharge Diagnosis 1. Chest pain. 2. Sinus bradycardia 3. Hypertension. 4. Atherosclerotic disease CONDITION Patient Condition: Stable HOME CARE INSTRUCTIONS: Special Diet: Cardiac FOLLOW UP/APPOINTMENTS Follow-up Plan 1. Follow up with Dr. Jatin Raya in 1-2 weeks NESS BAR Jul 18, 2017 09:45
[2017-07-18] MEDS ORDERED: ATOR10TA65 PO (09:54)
[2017-07-18] MEDS ORDERED: OMEG-135 PO (09:54)
== END 2017-07-18 10:47 | disposition home or self-care (01) | DRG 311 ==
LOC: E/R 15:35 → MS4 18:42
PROVIDERS: ADMIT Family Medicine; ATTEND Family Medicine
DX: I20.0 Unstable angina (principal); I10 Essential (primary) hypertension; R00.1 Bradycardia, unspecified; Z87.891 Personal history of nicotine dependence; E78.5 Hyperlipidemia, unspecified; I77.810 Thoracic aortic ectasia
CPT/HCPCS: 36415; 71010; 75571; 75574; 80048; 80053; 80061; 82550; 82553; 83036; 83735; 84100; 84443; 84484; 85025; 93005; 93306; Q9967